=== PATIENT | female | born 1965 | race African-American/Black ===

== ENCOUNTER 2019-09-20 12:50 | Emergency (ER) | payer OTHER | END 2019-09-20 13:47 | disposition home or self-care (01) | LOC: NAV ERS 12:50 | DX: U07.1 COVID-19 (principal); I10 Essential (primary) hypertension | CPT/HCPCS: 87635; 99283; U0003 ==

== ENCOUNTER 2021-01-29 15:02 | Emergency (ER) | payer OTHER ==
[2021-01-30 16:39] LABS: SARS-CoV-2 PCR by NAA Not Detected (NotDetected)
== END 2021-01-29 15:40 | disposition home or self-care (01) ==
LOC: NAV ERS 15:02
DX: B34.9 Viral infection, unspecified (principal); I10 Essential (primary) hypertension; Z20.822 Contact with and (suspected) exposure to COVID-19
CPT/HCPCS: 99283; U0003; U0005

== ENCOUNTER 2021-09-22 12:54 | Emergency (ER) | payer OTHER ==
[2021-09-22] MEDS ORDERED: Ibuprofen 200 MG TAB ONE (13:39)
== END 2021-09-22 13:54 | disposition home or self-care (01) ==
LOC: NAV ERS 12:54
DX: U07.1 COVID-19 (principal); J06.9 Acute upper respiratory infection, unspecified; I10 Essential (primary) hypertension; E78.00 Pure hypercholesterolemia, unspecified; Z79.899 Other long term (current) drug therapy; Z79.82 Long term (current) use of aspirin
CPT/HCPCS: 99283; U0003; U0005